=== PATIENT | male | born 1995 | race Caucasian/White ===

== ENCOUNTER 2020-04-21 18:18 | Emergency (ER) | payer OTHER ==
--- NOTE | 2020-04-21 19:12 | XR ---
EXAMINATION TYPE: XR chest 2V DATE OF EXAM: 04/21/2020 COMPARISON: NONE HISTORY: Cough and left sided chest pain. TECHNIQUE: Frontal and lateral views of the chest are obtained. FINDINGS: There is no focal air space opacity, pleural effusion, or pneumothorax seen. The cardiac silhouette size is within normal limits. The osseous structures are intact. IMPRESSION: No acute cardiopulmonary process.
[2020-04-21 19:22] VITALS: BP 115/76; PULSE 60; RESP 18; TEMP 98.2
--- NOTE | 2020-04-21 19:34 | ED ---
SOB HPI - General Chief Complaint: Shortness of Breath Stated Complaint: left lung inflamation Time Seen by Provider: 04/21/20 18:30 Source: patient Mode of arrival: ambulatory Limitations: no limitations - History of Present Illness Initial Comments: Patient is a 24-year-old male presenting to emergency Department with complaints of "left lung pain for the last month." He states he went to his PCPs office one month ago complaints of shortness of breath. He was given antibiotics, steroids and breathing treatments. Patient states he did feel like it helped a little bit but he still does not feel back to his normal self. He states he is an every day smoker, he also uses a Vape pen which he believes is causing increase in his symptoms. He states he feels worse after he smokes. He denies any chest pains, no fever or chills. He was tested for Covid one month ago and it was negative. He denies any abdominal pain, no nausea or vomiting. He denies history of blood clots, no heart disease. He has no further complaints at this time. Upon arrival to the ER, his vital signs are stable. - Related Data Home Medications Medication Instructions Recorded Confirmed Albuterol Sulfate [Proair Hfa] 2 puff INHALATION RT-QID PRN 04/21/20 04/21/20 Buprenorphine HCl/Naloxone HCl 1 tab SL BID 04/21/20 04/21/20 [Zubsolv 8.6-2.1 mg Tablet Sl] Escitalopram Oxalate [Lexapro] 10 mg PO DAILY 04/21/20 04/21/20 Famotidine 40 mg PO BID 04/21/20 04/21/20 Allergies Allergy/AdvReac Type Severity Reaction Status Date / Time codeine Allergy Unknown Verified 04/21/20 18:24 Childhood Review of Systems ROS Statement: Those systems with pertinent positive or pertinent negative responses have been documented in the HPI. ROS Other: All systems not noted in ROS Statement are negative. Past Medical History Past Medical History: No Reported History History of Any Multi-Drug Resistant Organisms: None Reported Past Surgical History: Orthopedic Surgery Additional Past Surgical History / Comment(s): femur fx repair Past Psychological History: Anxiety, Depression Smoking Status: Current every day smoker, Vaper Past Alcohol Use History: None Reported Past Drug Use History: Marijuana General Exam - General Exam Comments Initial Comments: GENERAL: Patient is well-developed and well-nourished. Patient is nontoxic and in no acute distress. HEAD: Atraumatic, normocephalic. EYES: Pupils equal round and reactive to light, extraocular movements intact, sclera anicteric, conjunctiva are normal. Eyelids were unremarkable. ENT: TMs normal, nares patent, oropharynx clear without exudates. Moist mucous membranes. NECK: Normal range of motion, supple without lymphadenopathy or JVD. LUNGS: Unlabored respirations. Breath sounds clear to auscultation bilaterally and equal. No wheezes rales or rhonchi. HEART: Regular rate and rhythm without murmurs, rubs or gallops. ABDOMEN: Soft, nontender, normoactive bowel sounds. No guarding, no rebound. No masses appreciated. : Deferred MUSCULOSKELETAL: Normal extremities with adequate strength and normal range of motion, no pitting or edema. No clubbing or cyanosis. NEUROLOGICAL: Patient is alert and oriented x 3. Motor and sensory are also intact. Cranial nerves II through XII grossly intact. Symmetrical smile. Normal speech, normal gait. PSYCH: Normal mood, normal affect. SKIN: Warm, Dry, normal turgor, no rashes or lesions noted. Limitations: no limitations Course Vital Signs 04/21/20 04/21/20 18:21 19:22 Temperature 98.0 F 98.2 F Pulse Rate 83 60 Respiratory 20 18 Rate Blood Pressure 121/71 115/76 O2 Sat by Pulse 98 99 Oximetry Medical Decision Making - Medical Decision Making Patient is a 24-year-old male here for some mild shortness of breath 1 month. He was treated by his PCP with antibiotics, steroids and breathing treatments one month ago, normal x-ray then. His vital signs today are unremarkable, exam is normal. Chest x-ray shows no acute findings. EKG is normal. We did discuss his every day smoking along with using his feet 10 which he believes is increasing symptoms. We discussed not smoking anymore. He also has an inhaler at home that he can use for shortness of breath. He will follow back up with his primary care physician. He is in agreement with this plan of care. He is stable for discharge. - EKG Data EKG Comments: Normal sinus rhythm, normal ECG. No signs of acute process. Ventricular rate 74, OK 152, QTC 400. Disposition Clinical Impression: Shortness of breath Disposition: HOME SELF-CARE Condition: Stable Instructions (If sedation given, give patient instructions): Normal Exam (ED) Additional Instructions: Please return to the Emergency Department if symptoms worsen or any other conc erns. May use a year inhaler for shortness of breath during the day. I recommend stop smoking and stop using the vape pen. Follow up with her regular doctor. Is patient prescribed a controlled substance at d/c from ED?: No Referrals: Nonstaff,Physician [Primary Care Provider] - 1-2 days
== END 2020-04-21 19:35 | disposition home or self-care (01) ==
LOC: EC 18:18
DX: R06.02 Shortness of breath (principal); F17.290 Nicotine dependence, other tobacco product, uncomplicated; F41.9 Anxiety disorder, unspecified; F32.9 Major depressive disorder, single episode, unspecified; Z79.899 Other long term (current) drug therapy; Z88.5 Allergy status to narcotic agent
CPT/HCPCS: 71046; 93005; 99285

== ENCOUNTER 2020-07-23 09:57 | Emergency (ER) | payer OTHER ==
[2020-07-23 10:06] VITALS: BP 143/98; PULSE 81; RESP 16; TEMP 97.8
[2020-07-23 10:45] LABS: Basophils % (A) 0 %; Eosinophils # (A) 0.1 k/uL (0-0.7); Eosinophils % (A) 1 %; HCT 43.5 % (39.0-53.0); Lymphocytes # (A) 1.6 k/uL (1.0-4.8); Lymphocytes % (A) 25 %; MCH 30.6 pg (25.0-35.0); MCHC 34.5 g/dL (31.0-37.0); MCV 88.7 fL (80.0-100.0); Mean Platelet Volume 6.8; Monocytes # (A) 0.3 k/uL (0-1.0); Monocytes % (A) 4 %; Neutrophils # (A) 4.5 k/uL (1.3-7.7); Neutrophils % (A) 69 %; Platelet Count 236 k/uL (150-450); RBC 4.91 m/uL (4.30-5.90); RDW 13.2 % (11.5-15.5); WBC 6.6 k/uL (3.8-10.6)
--- NOTE | 2020-07-23 10:46 | XR ---
EXAMINATION TYPE: XR chest 1V portable DATE OF EXAM: 07/23/2020 COMPARISON: Chest x-ray April 21, 2020 HISTORY: Right-sided chest and lung pain. TECHNIQUE: Single frontal view of the chest is obtained. FINDINGS: There is no suspicious new focal air space opacity, pleural effusion, or pneumothorax seen . The cardiac silhouette size remains within normal limits. The osseous structures remain intact. IMPRESSION: No acute process. No significant change from prior studies.
[2020-07-23 10:55] LABS: ALT 24 U/L (4-49); AST 26 U/L (17-59); African American GFR (CKD) >90 (>60 ml/min/1.73 sqM); Albumin 4.4 g/dL (3.5-5.0); Alkaline Phosphatase 83 U/L (38-126); Anion Gap 8 mmol/L; Blood Urea Nitrogen 13 mg/dL (9-20); Calcium 9.8 mg/dL (8.4-10.2); Carbon Dioxide 31 mmol/L (22-30); Chloride 102 mmol/L (98-107); Glucose 111 mg/dL (74-99); Non-African American GFR(CKD) >90 (>60 ml/min/1.73 sqM); Potassium 4.8 mmol/L (3.5-5.1); Sodium 141 mmol/L (137-145); Total Bilirubin 1.2 mg/dL (0.2-1.3); Total Protein 6.9 g/dL (6.3-8.2)
--- NOTE | 2020-07-23 11:35 | ED ---
General Adult HPI - General Chief complaint: Shortness of Breath Stated complaint: MINDY Time Seen by Provider: 07/23/20 10:17 Source: patient Mode of arrival: ambulatory Limitations: no limitations - History of Present Illness Initial comments: 24yo male with hx of HTN presenting to the ER today for chief complaint of right-sided chest pain. Patient states that on and off for months she's had right-sided chest pain he states is sharp in nature, comes and goes. Pt denies trauma/falls. Denies substernal pressure, jaw or arm pain. Denies diaphoresis. pt denies hemotpysis, leg swelling, hx of DVT/pE, recent surgeries/immobilization. Patient states at time he feels dyspnea. he states he thinks this is related to vaping. Patient states this particular episode has been present on and off x 1 day. 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 remaining ROS (-). - Related Data Home Medications Medication Instructions Recorded Confirmed Albuterol Sulfate [Proair Hfa] 2 puff INHALATION RT-QID PRN 04/21/20 04/21/20 Buprenorphine HCl/Naloxone HCl 1 tab SL BID 04/21/20 04/21/20 [Zubsolv 8.6-2.1 mg Tablet Sl] Escitalopram Oxalate [Lexapro] 10 mg PO DAILY 04/21/20 04/21/20 Famotidine 40 mg PO BID 04/21/20 04/21/20 Previous Rx's Medication Instructions Recorded predniSONE [Deltasone] 20 mg PO DAILY 4 Days #4 tab 07/23/20 Allergies Allergy/AdvReac Type Severity Reaction Status Date / Time codeine Allergy Unknown Verified 07/23/20 10:02 Childhood Review of Systems ROS Statement: Those systems with pertinent positive or pertinent negative responses have been documented in the HPI. ROS Other: All systems not noted in ROS Statement are negative. Past Medical History Past Medical History: No Reported History History of Any Multi-Drug Resistant Organisms: None Reported Past Surgical History: Orthopedic Surgery Additional Past Surgical History / Comment(s): femur fx repair Past Psychological History: Anxiety, Depression Smoking Status: Current every day smoker, Vaper Past Alcohol Use History: Occasional Past Drug Use History: Marijuana General Exam - General Exam Comments Initial Comments: General: The patient is awake and alert, in no distress, and does not appear acutely ill. Eye: +3 mm pupils are equal, round and reactive to light, extra-ocular movements are intact. No nystagmus. There is normal conjunctiva bilaterally. No signs of icterus. Neck: The neck is supple, there is no tenderness or JVD. Cardiovascular: There is a regular rate and rhythm. No murmur, rub or gallop is appreciated. Respiratory: Lungs are clear to auscultation, respirations are non-labored, breath sounds are equal. No wheezes, stridor, rales, or rhonchi. Gastrointestinal: Soft, non-distended, non-tender abdomen without masses or organomegaly noted. There is no rebound or guarding present. Musculoskeletal: Normal ROM, no tenderness. Strength 5/5. Sensation intact. Radial and DP pulses equal bilaterally 2+. Neurological: A&O x 3. CN II-XII intact grossly, There are no obvious motor or sensory deficits. Coordination appears grossly intact. Speech is normal. Skin: Skin is warm and dry and no rashes or lesions are noted. No LE edema or calf pain. Psychiatric: Cooperative, appropriate mood & affect, normal judgment. Limitations: no limitations Course Vital Signs 07/23/20 10:03 Temperature 97.8 F Pulse Rate 81 Respiratory 16 Rate Blood Pressure 143/98 O2 Sat by Pulse 100 Oximetry Medical Decision Making - Medical Decision Making Dimer (-). Troponin (-)--obtained in case of elevated d-dimer. Pt ekg no acute findings. no findings consistent with pericarditis. pt pain increases wtih deep inspiration. pt VS stable. does not appear cardiac in nature. cxr and lungs clear. no acute findings. no extremity findings. at this time pt was advised to quit smoking, we discussed possibility of pleurisy-pt initiated on steroids. he is to f/u with pcp and reutrn for worsening symptoms. pt discharged appearing well. Dr Moulton agreeable to care plan. - Lab Data Result diagrams: 07/23/20 10:36 07/23/20 10:36 Lab Results 07/23/20 07/23/20 07/23/20 Range/Units 10:27 10:36 10:36 WBC 6.6 (3.8-10.6) k/uL RBC 4.91 (4.30-5.90) m/uL Hgb 15.0 (13.0-17.5) gm/dL Hct 43.5 (39.0-53.0) % MCV 88.7 (80.0-100.0) fL MCH 30.6 (25.0-35.0) pg MCHC 34.5 (31.0-37.0) g/dL RDW 13.2 (11.5-15.5) % Plt Count 236 (150-450) k/uL MPV 6.8 Neutrophils % 69 % Lymphocytes % 25 % Monocytes % 4 % Eosinophils % 1 % Basophils % 0 % Neutrophils # 4.5 (1.3-7.7) k/uL Lymphocytes # 1.6 (1.0-4.8) k/uL Monocytes # 0.3 (0-1.0) k/uL Eosinophils # 0.1 (0-0.7) k/uL Basophils # 0.0 (0-0.2) k/uL D-Dimer 0.32 (<0.60) mg/L FEU Sodium (137-145) mmol/L Potassium (3.5-5.1) mmol/L Chloride (98-107) mmol/L Carbon Dioxide (22-30) mmol/L Anion Gap mmol/L BUN (9-20) mg/dL Creatinine (0.66-1.25) mg/dL Est GFR (CKD-EPI)AfAm (>60 ml/min/1.73 sqM) Est GFR (CKD-EPI)NonAf (>60 ml/min/1.73 sqM) Glucose (74-99) mg/dL Calcium (8.4-10.2) mg/dL Total Bilirubin (0.2-1.3) mg/dL AST (17-59) U/L ALT (4-49) U/L Alkaline Phosphatase (38-126) U/L Troponin I (0.000-0.034) ng/mL Total Protein (6.3-8.2) g/dL Albumin (3.5-5.0) g/dL Coronavirus (PCR) Not Detected (Not Detectd) 07/23/20 07/23/20 Range/Units 10:36 10:36 WBC (3.8-10.6) k/uL RBC (4.30-5.90) m/uL Hgb (13.0-17.5) gm/dL Hct (39.0-53.0) % MCV (80.0-100.0) fL MCH (25.0-35.0) pg MCHC (31.0-37.0) g/dL RDW (11.5-15.5) % Plt Count (150-450) k/uL MPV Neutrophils % % Lymphocytes % % Monocytes % % Eosinophils % % Basophils % % Neutrophils # (1.3-7.7) k/uL Lymphocytes # (1.0-4.8) k/uL Monocytes # (0-1.0) k/uL Eosinophils # (0-0.7) k/uL Basophils # (0-0.2) k/uL D-Dimer (<0.60) mg/L FEU Sodium 141 (137-145) mmol/L Potassium 4.8 (3.5-5.1) mmol/L Chloride 102 (98-107) mmol/L Carbon Dioxide 31 H (22-30) mmol/L Anion Gap 8 mmol/L BUN 13 (9-20) mg/dL Creatinine 0.82 (0.66-1.25) mg/dL Est GFR (CKD-EPI)AfAm >90 (>60 ml/min/1.73 sqM) Est GFR (CKD-EPI)NonAf >90 (>60 ml/min/1.73 sqM) Glucose 111 H (74-99) mg/dL Calcium 9.8 (8.4-10.2) mg/dL Total Bilirubin 1.2 (0.2-1.3) mg/dL AST 26 (17-59) U/L ALT 24 (4-49) U/L Alkaline Phosphatase 83 (38-126) U/L Troponin I <0.012 (0.000-0.034) ng/mL Total Protein 6.9 (6.3-8.2) g/dL Albumin 4.4 (3.5-5.0) g/dL Coronavirus (PCR) (Not Detectd) Disposition Clinical Impression: Chest pain Disposition: HOME SELF-CARE Condition: Good Instructions (If sedation given, give patient instructions): Pleurisy (ED) Additional Instructions: Please use medication as discussed. Please follow-up with family doctor in the next 2 days. Please stop smoking/vaping. Please return to emergency room if the symptoms increase or worsen or for any other concerns. Prescriptions: predniSONE [Deltasone] 20 mg PO DAILY 4 Days #4 tab Is patient prescribed a controlled substance at d/c from ED?: No Referrals: Nonstaff,Physician [Primary Care Provider] - 1-2 days [facility] [NON[facility]FF] - 1-2 days Time of Disposition: 11:37
== END 2020-07-23 11:50 | disposition home or self-care (01) ==
LOC: EC 09:57
DX: R07.89 Other chest pain (principal); F17.290 Nicotine dependence, other tobacco product, uncomplicated; F41.9 Anxiety disorder, unspecified; F32.9 Major depressive disorder, single episode, unspecified; Z20.822 Contact with and (suspected) exposure to COVID-19
CPT/HCPCS: 36415; 71045; 80053; 84484; 85025; 85379; 87635; 93005; 99285

== ENCOUNTER 2020-10-06 18:17 | Emergency (ER) | payer OTHER ==
--- NOTE | 2020-10-06 19:27 | ED ---
Recheck HPI - General Chief Complaint: Recheck/Abnormal Lab/Rx Stated Complaint: Abd pain Time Seen by Provider: 10/06/20 18:40 Source: patient Mode of arrival: ambulatory Limitations: no limitations - History of Present Illness Initial Comments: 24-year-old male presents to the emergency department with a chief complaint of Covid testing. Patient reports he needs a work note clearance because he has been experiencing some nausea vomiting diarrhea over the last 2 days but nothing today. States he does not want any laboratory workup but he would only like a work note. He will also like to be tested negative and a copy of the results. Has no other complaints. Patient reports he smokes several cigarettes and drink a monster prior to ED arrival he denies any chest pain or shortness of breath. - Related Data Home Medications Medication Instructions Recorded Confirmed Albuterol Sulfate [Proair Hfa] 2 puff INHALATION RT-QID PRN 04/21/20 04/21/20 Buprenorphine HCl/Naloxone HCl 1 tab SL BID 04/21/20 04/21/20 [Zubsolv 8.6-2.1 mg Tablet Sl] Escitalopram Oxalate [Lexapro] 10 mg PO DAILY 04/21/20 04/21/20 Famotidine 40 mg PO BID 04/21/20 04/21/20 Previous Rx's Medication Instructions Recorded predniSONE [Deltasone] 20 mg PO DAILY 4 Days #4 tab 07/23/20 Allergies Allergy/AdvReac Type Severity Reaction Status Date / Time codeine Allergy Unknown Verified 10/06/20 18:22 Childhood Review of Systems ROS Statement: Those systems with pertinent positive or pertinent negative responses have been documented in the HPI. ROS Other: All systems not noted in ROS Statement are negative. Past Medical History Past Medical History: No Reported History History of Any Multi-Drug Resistant Organisms: None Reported Past Surgical History: Orthopedic Surgery Additional Past Surgical History / Comment(s): femur fx repair Past Psychological History: Anxiety, Depression Smoking Status: Current every day smoker, Vaper Past Alcohol Use History: Daily Past Drug Use History: Marijuana General Exam Limitations: no limitations General appearance: alert, in no apparent distress Head exam: Present: atraumatic, normocephalic, normal inspection Eye exam: Present: normal appearance, PERRL, EOMI Pupils: Present: normal accommodation ENT exam: Present: normal exam, normal oropharynx, mucous membranes moist Neck exam: Present: normal inspection, full ROM. Absent: tenderness Respiratory exam: Present: normal lung sounds bilaterally. Absent: respiratory distress Cardiovascular Exam: Present: regular rate, normal rhythm, normal heart sounds. Absent: systolic murmur Extremities exam: Present: normal inspection, full ROM, normal capillary refill Back exam: Present: normal inspection, full ROM Neurological exam: Present: alert, oriented X3 Psychiatric exam: Present: normal affect, normal mood Skin exam: Present: warm, dry, intact, normal color Course Vital Signs 10/06/20 10/06/20 18:19 19:42 Temperature 98.0 F 98.3 F Pulse Rate 127 H 122 H Respiratory 16 18 Rate Blood Pressure 128/85 148/92 O2 Sat by Pulse 100 99 Oximetry Medical Decision Making - Medical Decision Making 24-year-old male presents to emergency department with a chief complaint of ov covid-19e testing. Patient does not want any laboratory workup aside from a Covid test. Swab is pending. Patient would like to review his results online and would like to be discharged. Patient continues to be tachycardic likely from drinking monster prior to arrival and while he was here. He also smoked several cigarettes prior to ED arrival. Case discussed with physician. Disposition Clinical Impression: Lab test negative for COVID-19 virus Disposition: HOME SELF-CARE Condition: Stable Instructions (If sedation given, give patient instructions): Coronavirus Disease 2019 (COVID-19) Additional Instructions: Please return to the Emergency Department if symptoms worsen or any other concerns. Is patient prescribed a controlled substance at d/c from ED?: No Referrals: Nonstaff,Physician [Primary Care Provider] - 1-2 days Time of Disposition: 19:27
[2020-10-06] MEDS ORDERED: LIDOCAINE 1%-EPI 1:100,000 20 ML VIAL SQ STA (19:30)
[2020-10-06 19:44] VITALS: BP 148/92; PULSE 122; RESP 18; TEMP 98.3
== END 2020-10-06 20:01 | disposition home or self-care (01) ==
LOC: EC 18:17
DX: Z20.822 Contact with and (suspected) exposure to COVID-19 (principal); R10.9 Unspecified abdominal pain; F41.9 Anxiety disorder, unspecified; F32.9 Major depressive disorder, single episode, unspecified; F17.290 Nicotine dependence, other tobacco product, uncomplicated; F17.210 Nicotine dependence, cigarettes, uncomplicated; F12.90 Cannabis use, unspecified, uncomplicated; Z79.52 Long term (current) use of systemic steroids
CPT/HCPCS: 87635; 99284

== ENCOUNTER 2020-11-05 16:05 | Emergency (ER) | payer OTHER ==
[2020-11-05 16:14] VITALS: BP 106/64; PULSE 104; RESP 16; TEMP 97.7
[2020-11-05] MEDS ORDERED: PROPARACAINE 0.5% OPHTH DROPS 15 ML BTL RIGHT EYE STA (16:16)
[2020-11-05] MEDS ORDERED: FLUORESCEIN STRIPS 1 MG STRIP RIGHT EYE ONE (16:16)
[2020-11-05] MEDS ORDERED: TOBRAMYCIN 0.3% OPHTH OINT 3.5 GM TUBE RIGHT EYE STA (16:48)
--- NOTE | 2020-11-05 17:11 | ED ---
Eye Problem HPI - General Chief complaint: Eye Problems Stated complaint: Glass in Rt Eye Time Seen by Provider: 11/05/20 16:16 Source: patient Mode of arrival: ambulatory Limitations: no limitations - History of Present Illness Initial comments: 24 year-old male patient presents to the emergency department for evaluation of possible foreign body to the right eye. Patient states that two days ago he was heating a glass object that shattered. States he felt something go into his right eye. States he had onset of pain and discomfort. States they flushed with three bottles of "saline". States the eye did feel better afterward but was still having some discomfort. Patient states redness and discomfort persisted so he presented here for further evaluation. He denies any visual disturbance. Denies drainage from the eye. States the discomfort feels like it is in the left upper quadrant of the eye. Denies any other injuries or concerns. States his te tanus vaccine is up to date. - Related Data Home Medications Medication Instructions Recorded Confirmed Albuterol Sulfate [Proair Hfa] 2 puff INHALATION RT-QID PRN 04/21/20 04/21/20 Buprenorphine HCl/Naloxone HCl 1 tab SL BID 04/21/20 04/21/20 [Zubsolv 8.6-2.1 mg Tablet Sl] Escitalopram Oxalate [Lexapro] 10 mg PO DAILY 04/21/20 04/21/20 Famotidine 40 mg PO BID 04/21/20 04/21/20 Previous Rx's Medication Instructions Recorded predniSONE [Deltasone] 20 mg PO DAILY 4 Days #4 tab 07/23/20 Allergies Allergy/AdvReac Type Severity Reaction Status Date / Time codeine Allergy Unknown Verified 11/05/20 16:14 Childhood Review of Systems ROS Statement: Those systems with pertinent positive or pertinent negative responses have been documented in the HPI. ROS Other: All systems not noted in ROS Statement are negative. Past Medical History Past Medical History: No Reported History History of Any Multi-Drug Resistant Organisms: None Reported Past Surgical History: Orthopedic Surgery Additional Past Surgical History / Comment(s): femur fx repair Past Psychological History: Anxiety, Depression Smoking Status: Current every day smoker, Vaper Past Alcohol Use History: Daily Past Drug Use History: Marijuana General Exam Limitations: no limitations General appearance: alert, in no apparent distress, other (Physical well-develo ped, well-nourished adult male patient in no acute distress. Vital signs upon presentation temperature 97.7F, pulse 104, respirations 16, blood pressure 106/64, pulse ox 98% on room air.) Eye exam: Present: PERRL, EOMI, conjunctival injection (Right-sided), other (Fluorescein stain with Wood's lamp examination was performed to the right eye. Lid eversion was performed. Area of increased redness to the LUQ of the eye and the area of discomfort. No evidence for foreign body. No uptake with the fluorescein. Negative Laura sign. Limbus is clear.). Absent: scleral icterus, periorbital swelling ENT exam: Present: normal exam, normal oropharynx, mucous membranes moist Cardiovascular Exam: Present: regular rate, normal rhythm, normal heart sounds. Absent: systolic murmur, diastolic murmur, rubs, gallop, clicks GI/Abdominal exam: Present: soft, normal bowel sounds. Absent: distended, tenderness, guarding, rebound, rigid Neurological exam: Present: alert, oriented X3, CN II-XII intact Psychiatric exam: Present: normal affect, normal mood Skin exam: Present: warm, dry, intact, normal color. Absent: rash Course Vital Signs 11/05/20 16:11 Temperature 97.7 F Pulse Rate 104 H Respiratory 16 Rate Blood Pressure 106/64 O2 Sat by Pulse 98 Oximetry Medical Decision Making - Medical Decision Making 24 year-old male patient presents for evaluation of irritation and redness to the right eye. Physical examination did reveal increased redness and irritation in the left upper quadrant of the eye area of discomfort. No evidence for foreign body. Negative Laura sign, no evidence for abrasion. No uptake of fluorescein. Patient did have improvement of symptoms with proparacaine. I did give tobramycin ointment to apply 4 times daily. He is instructed to follow-up with groundwater consultant for further evaluation as soon as possible. He requested testing for COVID states it would be required by his employer due to the red eye. Return parameters were discussed in detail. He verbalizes understanding and agrees this plan. Case discussed with my attending Dr. Cho. - Lab Data Lab Results 11/05/20 Range/Units 17:03 Coronavirus (PCR) Not Detected (Not Detectd) Disposition Clinical Impression: Right eye injury Disposition: HOME SELF-CARE Condition: Good Instructions (If sedation given, give patient instructions): Corneal Abrasion (ED), Conjunctivitis (ED) Additional Instructions: Use ointment to the right eye, 1cm ribbon to the lower lid 4 times daily while awake. Return for any new, worsening, or concerning symptoms. Is patient prescribed a controlled substance at d/c from ED?: No Referrals: Carlee Osborne MD [STAFF PHYSICIAN] - 1-2 days Time of Disposition: 17:09
== END 2020-11-05 17:15 | disposition home or self-care (01) ==
LOC: EC 16:05
DX: S05.91XA Unspecified injury of right eye and orbit, initial encounter (principal); F32.9 Major depressive disorder, single episode, unspecified; F41.9 Anxiety disorder, unspecified; F17.200 Nicotine dependence, unspecified, uncomplicated; F12.90 Cannabis use, unspecified, uncomplicated; Z79.52 Long term (current) use of systemic steroids; Z79.899 Other long term (current) drug therapy; W22.8XXA Striking against or struck by other objects, initial encounter
CPT/HCPCS: 87635; 99283

== ENCOUNTER 2020-12-27 18:58 | Emergency (ER) | payer OTHER ==
[2020-12-27 19:02] VITALS: BP 111/64; PULSE 108; RESP 16; TEMP 98.4
[2020-12-27] MEDS ORDERED: LIDOCAINE 1%-EPI 1:100,000 20 ML VIAL SQ STA (19:13)
--- NOTE | 2020-12-27 19:32 | ED ---
Skin/Abscess/FB HPI - General Chief complaint: Skin/Abscess/Foreign Body Stated complaint: infection Time Seen by Provider: 12/27/20 19:11 Source: patient Mode of arrival: ambulatory Limitations: no limitations - History of Present Illness Initial comments: 25-year-old male presenting to the emergency department with a chief complaint of an abscess in the right buttock 2 weeks. Patient reports this was a gradual onset and feels like his previous abscess. States last time this occurred he was in nursing home and he was on 2 antibiotics. Denies any history of MRSA. Denies any fevers or chills at home. Reports the region is tender with surrounding erythematous changes. Did report some discharge that he noticed 2 days ago but now it is mostly just tender to touch. - Related Data Home Medications Medication Instructions Recorded Confirmed Albuterol Sulfate [Proair Hfa] 2 puff INHALATION RT-QID PRN 04/21/20 04/21/20 Buprenorphine HCl/Naloxone HCl 1 tab SL BID 04/21/20 04/21/20 [Zubsolv 8.6-2.1 mg Tablet Sl] Escitalopram Oxalate [Lexapro] 10 mg PO DAILY 04/21/20 04/21/20 Famotidine 40 mg PO BID 04/21/20 04/21/20 Previous Rx's Medication Instructions Recorded predniSONE [Deltasone] 20 mg PO DAILY 4 Days #4 tab 07/23/20 Cephalexin [Keflex] 500 mg PO Q6HR #40 cap 12/27/20 Sulfamethox-Tmp 800-160Mg [Bactrim 1 each PO Q12HR #20 tab 12/27/20 Ds] Allergies Allergy/AdvReac Type Severity Reaction Status Date / Time codeine Allergy Unknown Verified 12/27/20 19:02 Childhood Review of Systems ROS Statement: Those systems with pertinent positive or pertinent negative responses have been documented in the HPI. ROS Other: All systems not noted in ROS Statement are negative. Past Medical History Past Medical History: No Reported History History of Any Multi-Drug Resistant Organisms: None Reported Past Surgical History: Orthopedic Surgery Additional Past Surgical History / Comment(s): femur fx repair Past Psychological History: Anxiety, Depression Smoking Status: Current every day smoker, Vaper Past Alcohol Use History: Daily Past Drug Use History: Marijuana General Exam Limitations: no limitations General appearance: alert, in no apparent distress Head exam: Present: atraumatic, normocephalic, normal inspection Eye exam: Present: normal appearance, PERRL, EOMI Pupils: Present: normal accommodation ENT exam: Present: normal exam, normal oropharynx, mucous membranes moist Neck exam: Present: normal inspection, full ROM. Absent: tenderness Respiratory exam: Present: normal lung sounds bilaterally. Absent: respiratory distress Cardiovascular Exam: Present: regular rate, normal rhythm, normal heart sounds. Absent: systolic murmur GI/Abdominal exam: Present: soft. Absent: distended, tenderness Extremities exam: Present: normal inspection, full ROM Back exam: Present: full ROM, tenderness (Tenderness at the abscess site on the right buttock). Absent: normal inspection (Abscess on the right buttock with mild surrounding cellulitis.) Neurological exam: Present: alert, oriented X3 Psychiatric exam: Present: normal affect, normal mood Skin exam: Present: warm, dry, intact, normal color Course Vital Signs 12/27/20 19:00 Temperature 98.4 F Pulse Rate 108 H Respiratory 16 Rate Blood Pressure 111/64 O2 Sat by Pulse 97 Oximetry Procedures - Incision & Drainage Consent Obtained: verbal consent, written consent Indication: Abscess Site: buttock Size (cm): 2 Anesthetic Used: lidocaine 1%, with epi Amount (mLs): 2 I&D Cleaning Method: Alcohol Wipe Sterile Field Used?: No Scalpel Used: #11 Needle Aspiration Performed?: No Irrigation Performed?: No I&D Drainage Obtained: Pus, Blood Complications: pain, bleeding Patient Tolerated Procedure: well, no complications Medical Decision Making - Medical Decision Making 25-year-old male presents emergency Department with a chief complaint of an abscess. A physical examination, there is an abscess with surrounding cellulitis, mild. Incision and drainage performed with minimal pustular drainage. Patient will be started on Keflex and Bactrim. I advised them on room control for the abscess. Return parameters were thoroughly discussed the patient is understanding and agreeable. Case discussed with Dr. Khoury. Disposition Clinical Impression: Abscess of buttock Disposition: HOME SELF-CARE Condition: Stable Instructions (If sedation given, give patient instructions): Abscess (ED), Abscess Incision and Drainage (DC) Additional Instructions: Please return to the Emergency Department if symptoms worsen or any other concerns. Prescriptions: Sulfamethox-Tmp 800-160Mg [Bactrim Ds] 1 each PO Q12HR #20 tab Cephalexin [Keflex] 500 mg PO Q6HR #40 cap Is patient prescribed a controlled substance at d/c from ED?: No Referrals: None,Stated [Primary Care Provider] - 1-2 days Time of Disposition: 19:32
== END 2020-12-27 20:18 | disposition home or self-care (01) ==
LOC: EC 18:58
DX: L02.31 Cutaneous abscess of buttock (principal); F41.9 Anxiety disorder, unspecified; F32.9 Major depressive disorder, single episode, unspecified; F17.200 Nicotine dependence, unspecified, uncomplicated; F12.90 Cannabis use, unspecified, uncomplicated; Z88.5 Allergy status to narcotic agent
CPT/HCPCS: 10060; 99282

== ENCOUNTER 2021-02-20 04:36 | Emergency (ER) | payer OTHER ==
[2021-02-20 04:45] VITALS: BP 141/95; PULSE 109; RESP 18; TEMP 97.8
[2021-02-20] MEDS ORDERED: predniSONE 20 MG TAB PO STA (05:47)
--- NOTE | 2021-02-20 05:49 | ED ---
Skin/Abscess/FB HPI - General Chief complaint: Skin/Abscess/Foreign Body Stated complaint: Revisit-Rash Time Seen by Provider: 02/20/21 05:37 Source: patient Mode of arrival: ambulatory Limitations: no limitations - History of Present Illness Initial comments: Patient is 25-year-old man who presents with complaint of pruritic rash mainly to her upper extremities but also located on the torso. The patient had been seen and has started using a steroid cream. he has not noted improvement in the 2 days since starting it. MD complaint: rash -: days(s) Location: generalized Severity: mild Quality: burning, other (Itching) Improves with: none Worsens with: none Associated symptoms: denies other symptoms Treatments Prior to Arrival: corticosteroid - Related Data Home Medications Medication Instructions Recorded Confirmed Albuterol Sulfate [Proair Hfa] 2 puff INHALATION RT-QID PRN 04/21/20 04/21/20 Buprenorphine HCl/Naloxone HCl 1 tab SL BID 04/21/20 04/21/20 [Zubsolv 8.6-2.1 mg Tablet Sl] Escitalopram Oxalate [Lexapro] 10 mg PO DAILY 04/21/20 04/21/20 Famotidine 40 mg PO BID 04/21/20 04/21/20 Previous Rx's Medication Instructions Recorded predniSONE [Deltasone] 20 mg PO DAILY 4 Days #4 tab 07/23/20 Cephalexin [Keflex] 500 mg PO Q6HR #40 cap 12/27/20 Sulfamethox-Tmp 800-160Mg [Bactrim 1 each PO Q12HR #20 tab 12/27/20 Ds] Triamcinolone 0.1% Cream [Kenalog 1 applicatio TOPICAL BID #30 gm 02/20/21 0.1% Cream] predniSONE [Deltasone] 20 mg PO BID #8 tab 02/20/21 Allergies Allergy/AdvReac Type Severity Reaction Status Date / Time codeine Allergy Unknown Verified 02/20/21 04:45 Childhood Review of Systems ROS Statement: Those systems with pertinent positive or pertinent negative responses have been documented in the HPI. ROS Other: All systems not noted in ROS Statement are negative. Constitutional: Denies: fever, chills Respiratory: Denies: cough, dyspnea Genitourinary: Denies: dysuria, hematuria Skin: Reports: as per HPI, rash Past Medical History Past Medical History: No Reported History History of Any Multi-Drug Resistant Organisms: None Reported Past Surgical History: Orthopedic Surgery Additional Past Surgical History / Comment(s): femur fx repair Past Psychological History: Anxiety, Depression Smoking Status: Current every day smoker, Vaper Past Alcohol Use History: Daily Past Drug Use History: Marijuana General Exam Limitations: no limitations General appearance: alert, in no apparent distress Head exam: Present: atraumatic, normocephalic Eye exam: Present: normal appearance. Absent: scleral icterus, conjunctival injection ENT exam: Present: normal oropharynx, mucous membranes moist Neck exam: Present: normal inspection Respiratory exam: Present: normal lung sounds bilaterally. Absent: respiratory distress, wheezes, rales, rhonchi, stridor Cardiovascular Exam: Present: regular rate, normal rhythm, normal heart sounds. Absent: systolic murmur, diastolic murmur, rubs, gallop Extremities exam: Present: normal inspection Skin exam: Present: warm, dry, intact, normal color, other (Patient has a papular rash mainly to the upper extremities bilaterally but also some that involves the torso. There is no involvement of the intertriginous areas or the axillae. No groin involvement. There is no involvement of the mucous membranes.) Course Vital Signs 02/20/21 04:42 Temperature 97.8 F Pulse Rate 109 H Respiratory 18 Rate Blood Pressure 141/95 O2 Sat by Pulse 100 Oximetry Medical Decision Making - Medical Decision Making Discussed possible etiologies with patient, at this point I contact dermatitis appears most likely and counseled patient that I suspect it will just take longer using the steroids. Did provide follow-up information for dermatology should the rash not be improving or should there be any worsening of it. Discussed return parameters. Disposition Clinical Impression: Contact dermatitis Disposition: HOME SELF-CARE Condition: Good Instructions (If sedation given, give patient instructions): Contact Dermatitis (DC) Prescriptions: predniSONE [Deltasone] 20 mg PO BID #8 tab Triamcinolone 0.1% Cream [Kenalog 0.1% Cream] 1 applicatio TOPICAL BID #30 gm Is patient prescribed a controlled substance at d/c from ED?: No Referrals: None,Stated [Primary Care Provider] - 1-2 days Mike Todd MD [STAFF PHYSICIAN] - 1-2 days
== END 2021-02-20 06:20 | disposition home or self-care (01) ==
LOC: EC 04:36
DX: L25.9 Unspecified contact dermatitis, unspecified cause (principal); F41.9 Anxiety disorder, unspecified; F32.A Depression, unspecified; F17.200 Nicotine dependence, unspecified, uncomplicated; F12.90 Cannabis use, unspecified, uncomplicated; Z88.5 Allergy status to narcotic agent
CPT/HCPCS: 99282; J7512

== ENCOUNTER 2021-03-02 22:41 | Emergency (ER) | payer OTHER ==
[2021-03-02 22:47] VITALS: BP 141/103; PULSE 120; RESP 18; TEMP 97.7
[2021-03-02] MEDS ORDERED: DEXAMETHASONE SOD PHOSPHATE 10 MG/ML 1 ML VIAL IM STA (23:01)
[2021-03-02] MEDS ORDERED: NYSTAT-TRIAMCIN 100,000-0.1 UNIT/GM-% CREAM 30 GM TUBE TOPICAL STA (23:02)
[2021-03-02] MEDS ORDERED: TRIAMCINOLONE 0.1% CREAM 80 GM TUBE TOPICAL SCH (23:15)
[2021-03-02] MEDS ORDERED: PERMETHRIN 5% CREAM 60 GM TUBE TOPICAL ONE (23:15)
[2021-03-02] MEDS ORDERED: NYSTATIN 100,000UNIT/GM CREAM 30 GM TUBE TOPICAL SCH (23:15)
[2021-03-02] MEDS ORDERED: hydrOXYzine HCL 25 MG TAB PO ONE (23:15)
--- NOTE | 2021-03-02 23:17 | ED ---
Skin/Abscess/FB HPI - General Chief complaint: Skin/Abscess/Foreign Body Stated complaint: Rash Time Seen by Provider: 03/02/21 22:57 Source: patient, RN notes reviewed, old records reviewed Mode of arrival: ambulatory Limitations: no limitations - History of Present Illness Initial comments: This is a 25-year-old male DF for evaluation of a two-week rash. Patient's where she has been significant for the last 2 weeks. History of multiple different creams medications without help. His rashes very itchy. His biggest complaint. Has not had any better despite treatment at times itching does go away. Otherwise no known sick contacts no family members with similar complaint. Patient unsure of exposure. MD complaint: rash -: week(s) (2) Location: generalized Severity: severe Severity scale (1-10): 9 Quality: aching, other (Itchy) Consistency: constant Improves with: none Worsens with: none Context: new medication Associated symptoms: denies other symptoms Treatments Prior to Arrival: Benadryl, corticosteroid - Related Data Home Medications Medication Instructions Recorded Confirmed Albuterol Sulfate [Proair Hfa] 2 puff INHALATION RT-QID PRN 04/21/20 04/21/20 Buprenorphine HCl/Naloxone HCl 1 tab SL BID 04/21/20 04/21/20 [Zubsolv 8.6-2.1 mg Tablet Sl] Escitalopram Oxalate [Lexapro] 10 mg PO DAILY 04/21/20 04/21/20 Famotidine 40 mg PO BID 04/21/20 04/21/20 Previous Rx's Medication Instructions Recorded predniSONE [Deltasone] 20 mg PO DAILY 4 Days #4 tab 07/23/20 Cephalexin [Keflex] 500 mg PO Q6HR #40 cap 12/27/20 Sulfamethox-Tmp 800-160Mg [Bactrim 1 each PO Q12HR #20 tab 12/27/20 Ds] Triamcinolone 0.1% Cream [Kenalog 1 applicatio TOPICAL BID #30 gm 02/20/21 0.1% Cream] predniSONE [Deltasone] 20 mg PO BID #8 tab 02/20/21 Famotidine [Pepcid] 40 mg PO BID #60 tab 03/02/21 hydrOXYzine HCL [Atarax] 50 mg PO QID PRN #60 tab 03/02/21 Allergies Allergy/AdvReac Type Severity Reaction Status Date / Time codeine Allergy Unknown Verified 03/02/21 22:47 Childhood Review of Systems ROS Statement: Those systems with pertinent positive or pertinent negative responses have been documented in the HPI. ROS Other: All systems not noted in ROS Statement are negative. Past Medical History Past Medical History: No Reported History History of Any Multi-Drug Resistant Organisms: None Reported Past Surgical History: Orthopedic Surgery Additional Past Surgical History / Comment(s): femur fx repair Past Psychological History: Anxiety, Depression Smoking Status: Current every day smoker, Vaper Past Alcohol Use History: Daily Past Drug Use History: Marijuana General Exam Limitations: no limitations General appearance: alert, in no apparent distress, anxious Head exam: Present: atraumatic, normocephalic, normal inspection Eye exam: Present: normal appearance, PERRL, EOMI. Absent: scleral icterus, conjunctival injection, periorbital swelling ENT exam: Present: normal exam, mucous membranes moist Neck exam: Present: normal inspection. Absent: tenderness, meningismus, lymphadenopathy Respiratory exam: Present: normal lung sounds bilaterally. Absent: respiratory distress, wheezes, rales, rhonchi, stridor Cardiovascular Exam: Present: normal rhythm, tachycardia, normal heart sounds. Absent: systolic murmur, diastolic murmur, rubs, gallop, clicks GI/Abdominal exam: Present: soft, normal bowel sounds. Absent: distended, tenderness, guarding, rebound, rigid Extremities exam: Present: normal inspection, full ROM, normal capillary refill. Absent: tenderness, pedal edema, joint swelling, calf tenderness Back exam: Present: normal inspection Neurological exam: Present: alert, oriented X3, CN II-XII intact Psychiatric exam: Present: normal affect, normal mood Skin exam: Present: warm, dry, intact, normal color. Absent: rash Course Vital Signs 03/02/21 22:44 Temperature 97.7 F Pulse Rate 120 H Respiratory 18 Rate Blood Pressure 141/103 O2 Sat by Pulse 96 Oximetry - Reevaluation(s) Reevaluation #1: 03/02/21 23:34 Medical record is reviewed Reevaluation #2: 03/02/21 23:34 Patient informed results and treatment plan here in the ER, questions answered Reevaluation #3: 03/02/21 23:35 Symptoms are improved here in the ER Medical Decision Making - Medical Decision Making 25 male DF for evaluation of significant itching urticarial rash for 2 weeks. Likely scabies, patient given treatment here in the ER as well as supportive care and itching care. Disposition Clinical Impression: Contact dermatitis, Urticaria Disposition: HOME SELF-CARE Condition: Fair Instructions (If sedation given, give patient instructions): Urticaria (ED) Prescriptions: hydrOXYzine HCL [Atarax] 50 mg PO QID PRN #60 tab PRN Reason: Itching Famotidine [Pepcid] 40 mg PO BID #60 tab Is patient prescribed a controlled substance at d/c from ED?: No Referrals: None,Stated [Primary Care Provider] - 1-2 days
[2021-03-02] MEDS ORDERED: FAMOTIDINE 20 MG TAB PO STA (23:18)
== END 2021-03-02 23:33 | disposition home or self-care (01) ==
LOC: EC 22:41
DX: L50.9 Urticaria, unspecified (principal); L25.9 Unspecified contact dermatitis, unspecified cause; F41.9 Anxiety disorder, unspecified; F32.A Depression, unspecified; F17.290 Nicotine dependence, other tobacco product, uncomplicated; F12.90 Cannabis use, unspecified, uncomplicated; Z72.89 Other problems related to lifestyle
CPT/HCPCS: 99282; 96372; J1100

== ENCOUNTER 2021-09-23 21:14 | Emergency (ER) | payer BC, OTHER ==
[2021-09-23] MEDS ORDERED: SODIUM CHLORIDE 0.9% 1,000 ML IV STA (21:58)
[2021-09-23] MEDS ORDERED: diphenhydrAMINE 50 MG/ML 1 ML VIAL IVP STA (21:58)
[2021-09-23] MEDS ORDERED: KETOROLAC 15 MG/ML 1 ML VIAL IVP STA (21:58)
[2021-09-23] MEDS ORDERED: METOCLOPRAMIDE 5 MG/ML 2 ML VIAL IVP STA (21:58)
[2021-09-23] MEDS ORDERED: DEXAMETHASONE SOD PHOSPHATE 10 MG/ML 1 ML VIAL IV STA (21:58)
--- NOTE | 2021-09-23 23:57 | ED ---
URI HPI - General Chief Complaint: Upper Respiratory Infection Stated Complaint: Covid+, Headache, Bodyache Time Seen by Provider: 09/23/21 21:40 Source: patient Mode of arrival: ambulatory Limitations: no limitations - History of Present Illness Initial Comments: 25-year-old male presents to the emergency department with symptoms of body aches, fevers and headache. Patient reports that he began having symptoms today and they became very severe. Admits to pressure behind both of his eyes. He is not taking any medications at home for her symptoms. Does report that his brother tested positive for Covid. He took a home Covid test that was positive. Presents for further treatment options. Patient is not vaccinated. Denies chest pain or shortness of breath. No cough. Denies nausea or vomiting. He has been able to take in good oral intake. No other alleviating, precipitating factors - Related Data Home Medications Medication Instructions Recorded Confirmed Albuterol Sulfate [Proair Hfa] 2 puff INHALATION RT-QID PRN 04/21/20 04/21/20 Buprenorphine HCl/Naloxone HCl 1 tab SL BID 04/21/20 04/21/20 [Zubsolv 8.6-2.1 mg Tablet Sl] Escitalopram Oxalate [Lexapro] 10 mg PO DAILY 04/21/20 04/21/20 Famotidine 40 mg PO BID 04/21/20 04/21/20 Previous Rx's Medication Instructions Recorded predniSONE [Deltasone] 20 mg PO DAILY 4 Days #4 tab 07/23/20 Cephalexin [Keflex] 500 mg PO Q6HR #40 cap 12/27/20 Sulfamethox-Tmp 800-160Mg [Bactrim 1 each PO Q12HR #20 tab 12/27/20 Ds] Triamcinolone 0.1% Cream [Kenalog 1 applicatio TOPICAL BID #30 gm 02/20/21 0.1% Cream] predniSONE [Deltasone] 20 mg PO BID #8 tab 02/20/21 Famotidine [Pepcid] 40 mg PO BID #60 tab 03/02/21 hydrOXYzine HCL [Atarax] 50 mg PO QID PRN #60 tab 03/02/21 Naproxen [Naprosyn] 500 mg PO BID #20 tablet 09/24/21 Allergies Allergy/AdvReac Type Severity Reaction Status Date / Time codeine Allergy Unknown Verified 09/23/21 21:22 Childhood Review of Systems ROS Statement: Those systems with pertinent positive or pertinent negative responses have been documented in the HPI. ROS Other: All systems not noted in ROS Statement are negative. Past Medical History Past Medical History: No Reported History History of Any Multi-Drug Resistant Organisms: None Reported Past Surgical History: Orthopedic Surgery Additional Past Surgical History / Comment(s): femur fx repair Past Psychological History: Anxiety, Depression Smoking Status: Current every day smoker, Vaper Past Alcohol Use History: Daily Past Drug Use History: Marijuana General Exam Limitations: no limitations General appearance: alert, in no apparent distress Head exam: Present: atraumatic, normocephalic, normal inspection Eye exam: Present: normal appearance, PERRL, EOMI. Absent: scleral icterus, conjunctival injection, periorbital swelling ENT exam: Present: normal exam, mucous membranes moist Neck exam: Present: normal inspection. Absent: tenderness, meningismus, lymphadenopathy Respiratory exam: Present: normal lung sounds bilaterally. Absent: respiratory distress, wheezes, rales, rhonchi, stridor Cardiovascular Exam: Present: regular rate, normal rhythm, normal heart sounds. Absent: systolic murmur, diastolic murmur, rubs, gallop, clicks GI/Abdominal exam: Present: soft, normal bowel sounds. Absent: distended, tenderness, guarding, rebound, rigid Extremities exam: Present: normal inspection, full ROM, normal capillary refill. Absent: tenderness, pedal edema, joint swelling, calf tenderness Back exam: Present: normal inspection Neurological exam: Present: alert, oriented X3, CN II-XII intact Psychiatric exam: Present: normal affect, normal mood Skin exam: Present: warm, dry, intact, normal color. Absent: rash Course Vital Signs 09/23/21 09/24/21 09/24/21 21:20 00:10 01:25 Temperature 99.5 F 99.4 F Pulse Rate 102 H 78 76 Respiratory 20 16 16 Rate Blood Pressure 125/85 138/95 132/84 O2 Sat by Pulse 97 98 98 Oximetry Medical Decision Making - Medical Decision Making Upon arrival patient was placed in room 7. Thorough history and physical exam was performed. IV is established. Patient is given a liter bolus of normal saline, 10 mg of Reglan, 50 mg of Toradol, 25 mg of Benadryl and 10 mg of Decadron. Patient is reevaluated and reports that he has marked improvement in his symptoms. As his PMI is greater than 25 a did offer antibody treatment for which the patient did agree to. This is administered. Patient will be discharged home and instructed to follow up with his primary care doctor in 2-4 days. Return to the emergency room for any new or worsening symptoms. Patient was discharged with stable condition Disposition Clinical Impression: COVID-19 Disposition: HOME SELF-CARE Condition: Stable Instructions (If sedation given, give patient instructions): COVID-19 (Coronavirus Disease 2019) (ED) Additional Instructions: Please alternate taking Motrin and Tylenol for pain control. Follow up with your care doctor in 2-4 days and return for any new or worsening symptoms Prescriptions: Naproxen [Naprosyn] 500 mg PO BID #20 tablet Is patient prescribed a controlled substance at d/c from ED?: No Referrals: None,Stated [Primary Care Provider] - 1-2 days Time of Disposition: 23:57
[2021-09-24 00:10] VITALS: RESP 16
[2021-09-24] MEDS ORDERED: BEBTELOVIMAB (EUA) 175 MG/2 ML VIAL IV ONE (00:30)
[2021-09-24 01:29] VITALS: BP 132/84; PULSE 76; TEMP 99.4
== END 2021-09-24 01:25 | disposition home or self-care (01) ==
LOC: EC 21:14
DX: U07.1 COVID-19 (principal); F17.209 Nicotine dependence, unspecified, with unspecified nicotine-induced disorders; Z88.5 Allergy status to narcotic agent
CPT/HCPCS: 99284; 96374; 96375; 96361; J1200; J1100; J2765; J1885; Q0222

== ENCOUNTER 2022-08-23 21:12 | Emergency (ER) | payer OTHER, BC ==
[2022-08-23 21:39] VITALS: BP 119/76; PULSE 71; RESP 20; TEMP 98.3
--- NOTE | 2022-08-23 22:39 | ED ---
General Adult HPI - General Chief complaint: Recheck/Abnormal Lab/Rx Stated complaint: [facility] Time Seen by Provider: 08/23/22 22:13 Source: patient, RN notes reviewed Mode of arrival: ambulatory Limitations: no limitations - History of Present Illness Initial comments: 26-year-old male with no significant past medical history presents to the emergency department with a chief complaint of urine drug screen. Patient reports that he works at "[employer]" and they are requesting that he get a drug test. He denies any injury at work. He denies any specific complaints at the time of evaluation. Denies dizziness, lightheaded, chest pain, shortness of breath, abdominal pain, recent falls. - Related Data Home Medications Medication Instructions Recorded Confirmed Albuterol Sulfate [Proair Hfa] 2 puff INHALATION RT-QID PRN 04/21/20 04/21/20 Buprenorphine HCl/Naloxone HCl 1 tab SL BID 04/21/20 04/21/20 [Zubsolv 8.6-2.1 mg Tablet Sl] Escitalopram Oxalate [Lexapro] 10 mg PO DAILY 04/21/20 04/21/20 Famotidine 40 mg PO BID 04/21/20 04/21/20 Previous Rx's Medication Instructions Recorded predniSONE [Deltasone] 20 mg PO DAILY 4 Days #4 tab 07/23/20 Cephalexin [Keflex] 500 mg PO Q6HR #40 cap 12/27/20 Sulfamethox-Tmp 800-160Mg [Bactrim 1 each PO Q12HR #20 tab 12/27/20 Ds] Triamcinolone 0.1% Cream [Kenalog 1 applicatio TOPICAL BID #30 gm 02/20/21 0.1% Cream] predniSONE [Deltasone] 20 mg PO BID #8 tab 02/20/21 Famotidine [Pepcid] 40 mg PO BID #60 tab 03/02/21 hydrOXYzine HCL [Atarax] 50 mg PO QID PRN #60 tab 03/02/21 Naproxen [Naprosyn] 500 mg PO BID #20 tablet 09/24/21 Allergies Allergy/AdvReac Type Severity Reaction Status Date / Time codeine Allergy Unknown Verified 08/23/22 21:38 Childhood Review of Systems ROS Statement: Those systems with pertinent positive or pertinent negative responses have been documented in the HPI. ROS Other: All systems not noted in ROS Statement are negative. Past Medical History Past Medical History: No Reported History History of Any Multi-Drug Resistant Organisms: None Reported Past Surgical History: Orthopedic Surgery Additional Past Surgical History / Comment(s): femur fx repair Past Psychological History: Anxiety, Depression Smoking Status: Current every day smoker, Vaper Past Alcohol Use History: Daily Past Drug Use History: Marijuana General Exam - General Exam Comments Initial Comments: General: Alert, in no acute distress Head: atraumatic normocephalic. Eyes PERRL, EOMI intact, mucous membranes moist Respiratory: Lungs clear to auscultation bilaterally Cardiovascular: Heart rate regular rate and rhythm Abdominal: Soft without guarding or rebound Extremities: Normal inspection with full range of motion and normal capillary refill Neuroogic: alert and oriented 3, CN II-XII intact, able to ambulate with steady gait Skin: warm dry and intact with normal color Limitations: no limitations Course Vital Signs 08/23/22 21:36 Temperature 98.3 F Pulse Rate 71 Respiratory 20 Rate Blood Pressure 119/76 O2 Sat by Pulse 98 Oximetry Medical Decision Making - Medical Decision Making Was pt. sent in by a medical professional or institution (, PA, BONDING EQUIPMENT OPERATOR, urgent care, hospital, or jail...) When possible be specific @ -[No] Did you speak to anyone other than the patient for history (EMS, parent, family, police, friend...)? What history was obtained from this source @ -[No] Did you review nursing and triage notes (agree or disagree)? Why? @ -[I reviewed and agree with nursing and triage notes] Were old charts reviewed (outside hosp., previous admission, EMS record, old EKG, old radiological studies, urgent care reports/EKG's, jail records)? Report findings @ -[No old charts were reviewed] Differential Diagnosis (chest pain, altered mental status, abdominal pain women, abdominal pain men, vaginal bleeding, weakness, fever, dyspnea, syncope, headache, dizziness, GI bleed, back pain, seizure, CVA, palpatations, mental health, musculoskeletal)? @ -[not applicable] EKG interpreted by me (3pts min.). @ -[As above] X-rays interpreted by me (1pt min.). @ -[None done] CT interpreted by me (1pt min.). @ -[None done] U/S interpreted by me (1pt. min.). @ -[None done] What testing was considered but not performed or refused? (CT, X-rays, U/S, labs)? Why? @ -[None] What meds were considered but not given or refused? Why? @ -[None] Did you discuss the management of the patient with other professionals (professionals i.e. Dr., PA, BONDING EQUIPMENT OPERATOR, lab, RT, psych nurse, social services assistant, firebreak cutter, teacher, dairy quality assurance officer, pillowcase sewer)? Give summary @ -[No] Was smoking cessation discussed for >3mins.? @ -[No] Was critical care preformed (if so, how long)? @ -[No] Were there social determinants of health that impacted care today? How? (Homelessness, low income, unemployed, alcoholism, drug addiction, transportation, low edu. Level, literacy, decrease access to med. care, detention, rehab)? @ -[No] Was there de-escalation of care discussed even if they declined (Discuss DNR or withdrawal of care, Hospice)? DNR status @ -[No] What co-morbidities impacted this encounter? (DM, HTN, Smoking, COPD, CAD, Cancer, CVA, ARF, Chemo, Hep., AIDS, mental health diagnosis, sleep apnea, morbid obesity)? @ -[None] Was patient admitted / discharged? Hospital course, mention meds given and route, prescriptions, significant lab abnormalities, going to OR and other pertinent info. @ -Discharged. This is a 26-year-old male who presents to the emergency department with urine drug screen. Patient had a thorough history and physical exam performed while in the ED. Physical likely unremarkable heart rate regular rate and rhythm lungs clear to auscultation bilaterally abdomen is soft and nontender. Urine Drug screen results pending. Return precautions were discussed at length. All questions questions and concerns were addressed. He was discharged in stable condition. Case discussed with JEWELS Tian who agrees with plan of care Undiagnosed new problem with uncertain prognosis? @ -[No] Drug Therapy requiring intensive monitoring for toxicity (Heparin, Nitro, Insulin, Cardizem)? @ -[No] Were any procedures done? @ -[No] Diagnosis/symptom? @ -Encounter for Urine Drug Screen Acute, or Chronic, or Acute on Chronic? @ -acute Uncomplicated (without systemic symptoms) or Complicated (systemic symptoms)? @ -uncomplicated Side effects of treatment? @ -[No] Exacerbation, Progression, or Severe Exacerbation? @ -[No] Poses a threat to life or bodily function? How? (Chest pain, [place], [place], pneumonia, PE, COPD, DKA, ARF, appy, cholecystitis, CVA, Diverticulitis, Homicidal, Suicidal, threat to staff... and all critical care pts) @ -low likelihood Disposition Clinical Impression: Encounter for drug screening Disposition: HOME SELF-CARE Condition: Stable Additional Instructions: These return to the nearest emergency department if symptoms worsen or persist Is patient prescribed a controlled substance at d/c from ED?: No Referrals: None,Stated [Primary Care Provider] - 1-2 days Time of Disposition: 22:39
== END 2022-08-23 22:40 | disposition home or self-care (01) ==
LOC: EC 21:12
DX: Z02.83 Encounter for blood-alcohol and blood-drug test (principal); F41.9 Anxiety disorder, unspecified; F32.A Depression, unspecified; F17.290 Nicotine dependence, other tobacco product, uncomplicated; F12.90 Cannabis use, unspecified, uncomplicated; Z79.899 Other long term (current) drug therapy; Z88.5 Allergy status to narcotic agent
CPT/HCPCS: 99281

== ENCOUNTER 2022-12-19 11:17 | Emergency (ER) | payer BC, OTHER ==
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
[2022-12-19 16:05] VITALS: BP 149/99; PULSE 99; RESP 18; TEMP 97.7
== END 2022-12-19 15:51 | disposition home or self-care (01) ==
LOC: EC 11:17
DX: S00.83XA Contusion of other part of head, initial encounter (principal); F32.A Depression, unspecified; F41.9 Anxiety disorder, unspecified; F12.90 Cannabis use, unspecified, uncomplicated; F17.290 Nicotine dependence, other tobacco product, uncomplicated; Z79.899 Other long term (current) drug therapy; Z88.5 Allergy status to narcotic agent; W22.8XXA Striking against or struck by other objects, initial encounter
CPT/HCPCS: 70450; 70486; 99283

== ENCOUNTER 2023-01-09 14:20 | Emergency (ER) | payer OTHER ==
[2023-01-09] MEDS ORDERED: SODIUM CHLORIDE 0.9% 500 ML 500 ML IV STA (15:15)
--- NOTE | 2023-01-09 15:17 | ED ---
Abdominal Pain HPI - General Chief Complaint: Abdominal Pain Stated Complaint: vomitting, sweats, Time Seen by Provider: 01/09/23 15:09 Source: patient Mode of arrival: ambulatory Limitations: no limitations - History of Present Illness Initial Comments: 's patient is 27-year-old man who presents to have evaluation for abdominal pain. He notes that it is getting progressively worse over the past 3 days or so. He is also now not tolerating any oral intake. He states that he is having multiple episodes of vomiting every day and now it is just "stomach acid." The patient has not noted fever or chills. No change in urination. He states that his last bowel movement was probably about 3 days ago and at that time seemed normal. MD Complaint: abdominal pain -: days(s) Location: periumbilical Radiation: none Migration to: other (Diffuse) Severity: severe Quality: aching Consistency: constant Improves With: nothing Worsens With: nothing Associated Symptoms: nausea, vomiting, constipation - Related Data Home Medications Medication Instructions Recorded Confirmed No Known Home Medications 01/09/23 01/09/23 Allergies Allergy/AdvReac Type Severity Reaction Status Date / Time codeine Allergy Unknown Verified 01/09/23 16:18 Childhood Review of Systems ROS Statement: Those systems with pertinent positive or pertinent negative responses have been documented in the HPI. ROS Other: All systems not noted in ROS Statement are negative. Constitutional: Denies: fever, chills Respiratory: Denies: cough, dyspnea Cardiovascular: Denies: chest pain, palpitations, edema Gastrointestinal: Reports: abdominal pain, nausea, vomiting, constipation. 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 Absent: scleral icterus, conjunctival injection Neck exam: Present: normal inspection Respiratory exam: Present: normal lung sounds bilaterally. Absent: respiratory distress, wheezes, rales, rhonchi, stridor Cardiovascular Exam: Present: regular rate, normal rhythm, normal heart sounds. Absent: systolic murmur, diastolic murmur, rubs, gallop GI/Abdominal exam: Present: soft. Absent: distended, tenderness, guarding, rebound, rigid, mass, pulsatile mass Extremities exam: Present: normal inspection, normal capillary refill. Absent: pedal edema, calf tenderness Back exam: Present: normal inspection. Absent: CVA tenderness (R), CVA tenderness (L) Neurological exam: Present: alert Skin exam: Present: warm, dry, intact, normal color. Absent: rash Course Vital Signs 01/09/23 01/09/23 01/09/23 14:34 16:20 18:20 Temperature 98.0 F Pulse Rate 72 69 56 L Respiratory 22 18 18 Rate Blood Pressure 130/103 152/102 149/100 O2 Sat by Pulse 100 100 98 Oximetry 01/09/23 01/09/23 18:52 21:30 Temperature 98.6 F Pulse Rate 67 68 Respiratory 18 18 Rate Blood Pressure 143/106 122/67 O2 Sat by Pulse 97 99 Oximetry Medical Decision Making - Medical Decision Making The patient had computed tomography scan of the abdomen and pelvis which I interpreted as negative for acute surgical condition, obstruction, free air. Was pt. sent in by a medical professional or institution (, PA, LIFE MANAGER, urgent care, hospital, or fdc...) When possible be specific @ -[No] Did you speak to anyone other than the patient for history (EMS, parent, family, police, friend...)? What history was obtained from this source @ -[No] Did you review nursing and triage notes (agree or disagree)? Why? @ -[I reviewed and agree with nursing and triage notes] Were old charts reviewed (outside hosp., previous admission, EMS record, old EKG, old radiological studies, urgent care reports/EKG's, fdc records)? Report findings @ -[No old charts were reviewed] Differential Diagnosis (chest pain, altered mental status, abdominal pain women, abdominal pain men, vaginal bleeding, weakness, fever, dyspnea, syncope, headache, dizziness, GI bleed, back pain, seizure, CVA, palpatations, mental health, musculoskeletal)? @ -[Differential Abdominal Pain Men: Appendicitis, cholecystitis, diverticulosis, ischemic bowel, pancreatitis, hepatitis, UTI, gastroenteritis, AAA, incarcerated hernia, bowel obstruction, constipation, inflammatory bowel, hepatitis, peptic ulcer disease, splenic infarction, perforated viscus, testicular torsion, this is not meant to be an all-inclusive list EKG interpreted by me (3pts min.). @ -[ X-rays interpreted by me (1pt min.). @ -[None done] CT interpreted by me (1pt min.). @ -[I interpreted as above U/S interpreted by me (1pt. min.). @ -[None done] What testing was considered but not performed or refused? (CT, X-rays, U/S, labs)? Why? @ -[None] What meds were considered but not given or refused? Why? @ -[None] Did you discuss the management of the patient with other professionals (professionals i.e. , PA, LIFE MANAGER, lab, RT, psych nurse, social sciences research scientist, director of flight operations, teacher, medical officer, caseworker)? Give summary @ -[No] Was smoking cessation discussed for >3mins.? @ -[No] Was critical care preformed (if so, how long)? @ -[No] Were there social determinants of health that impacted care today? How? (Homelessness, low income, unemployed, alcoholism, drug addiction, transportation, low edu. Level, literacy, decrease access to med. care, senior living, rehab)? @ -[No] Was there de-escalation of care discussed even if they declined (Discuss DNR or withdrawal of care, Hospice)? DNR status @ -[No] What co-morbidities impacted this encounter? (DM, HTN, Smoking, COPD, CAD, Cancer, CVA, ARF, Chemo, Hep., AIDS, mental health diagnosis, sleep apnea, morbid obesity)? @ -[None] Was patient admitted / discharged? Hospital course, mention meds given and route , prescriptions, significant lab abnormalities, going to OR and other pertinent info. @ -[This patient is a 27-year-old man here to have evaluation of abdominal pain. The patient did have some lower abdominal tenderness and therefore head CT scan of the abdomen which does not reveal acute surgical condition. He is feeling better following medication and IV fluids. We discussed appropriate further care and follow-up and patient given instructions to return in 6-12 hours if any worsening or if not having improvement. Given appendicitis warning Undiagnosed new problem with uncertain prognosis? @ -[No] Drug Therapy requiring intensive monitoring for toxicity (Heparin, Nitro, Insulin, Cardizem)? @ -[No] Were any procedures done? @ -[No] Diagnosis/symptom? @ -[Acute abdominal pain Acute, or Chronic, or Acute on Chronic? @ -[Acute Uncomplicated (without systemic symptoms) or Complicated (systemic symptoms)? @ -Uncomplicated Side effects of treatment? @ -[No] Exacerbation, Progression, or Severe Exacerbation? @ -[No] Poses a threat to life or bodily function? How? (Chest pain, [place], [place], pneumonia, PE, COPD, DKA, ARF, appy, cholecystitis, CVA, Diverticulitis, Homicidal, Suicidal, threat to staff... and all critical care pts) @ -[Low likelihood - Lab Data Result diagrams: 01/09/23 15:30 01/09/23 15:30 Lab Results 01/09/23 01/09/23 01/09/23 Range/Units 15:30 15:30 15:30 WBC 12.7 H (3.8-10.6) k/uL RBC 5.54 (4.30-5.90) m/uL Hgb 16.7 (13.0-17.5) gm/dL Hct 48.3 (39.0-53.0) % MCV 87.2 (80.0-100.0) fL MCH 30.2 (25.0-35.0) pg MCHC 34.7 (31.0-37.0) g/dL RDW 13.8 (11.5-15.5) % Plt Count 335 (150-450) k/uL MPV 7.3 Neutrophils % 82 % Lymphocytes % 13 % Monocytes % 4 % Eosinophils % 0 % Basophils % 0 % Neutrophils # 10.4 H (1.3-7.7) k/uL Lymphocytes # 1.6 (1.0-4.8) k/uL Monocytes # 0.5 (0-1.0) k/uL Eosinophils # 0.0 (0-0.7) k/uL Basophils # 0.0 (0-0.2) k/uL Sodium 138 (137-145) mmol/L Potassium 4.8 (3.5-5.1) mmol/L Chloride 97 L (98-107) mmol/L Carbon Dioxide 24 (22-30) mmol/L Anion Gap 17 mmol/L BUN 32 H (9-20) mg/dL Creatinine 0.87 (0.66-1.25) mg/dL Est GFR (CKD-EPI)AfAm >90 (>60 ml/min/1.73 sqM) Est GFR (CKD-EPI)NonAf >90 (>60 ml/min/1.73 sqM) Glucose 122 H (74-99) mg/dL Plasma Lactic Acid Ramesh 1.7 (0.7-2.0) mmol/L Calcium 10.2 (8.4-10.2) mg/dL Total Bilirubin 1.6 H (0.2-1.3) mg/dL AST 26 (17-59) U/L ALT 23 (4-49) U/L Alkaline Phosphatase 124 (38-126) U/L C-Reactive Protein 1.3 H (<1.0) mg/dL Total Protein 8.5 H (6.3-8.2) g/dL Albumin 5.2 H (3.5-5.0) g/dL Amylase 52 (30-110) U/L Lipase 75 (23-300) U/L Urine Color Urine Appearance (Clear) Urine pH (5.0-8.0) Ur Specific Glenn (1.001-1.035) Urine Protein (Negative) Urine Glucose (UA) (Negative) Urine Ketones (Negative) Urine Blood (Negative) Urine Nitrite (Negative) Urine Bilirubin (Negative) Urine Urobilinogen (<2.0) mg/dL Ur Leukocyte Esterase (Negative) Urine RBC (0-5) /hpf Urine Mucus (None) /hpf 01/09/23 Range/Units 18:06 WBC (3.8-10.6) k/uL RBC (4.30-5.90) m/uL Hgb (13.0-17.5) gm/dL Hct (39.0-53.0) % MCV (80.0-100.0) fL MCH (25.0-35.0) pg MCHC (31.0-37.0) g/dL RDW (11.5-15.5) % Plt Count (150-450) k/uL MPV Neutrophils % % Lymphocytes % % Monocytes % % Eosinophils % % Basophils % % Neutrophils # (1.3-7.7) k/uL Lymphocytes # (1.0-4.8) k/uL Monocytes # (0-1.0) k/uL Eosinophils # (0-0.7) k/uL Basophils # (0-0.2) k/uL Sodium (137-145) mmol/L Potassium (3.5-5.1) mmol/L Chloride (98-107) mmol/L Carbon Dioxide (22-30) mmol/L Anion Gap mmol/L BUN (9-20) mg/dL Creatinine (0.66-1.25) mg/dL Est GFR (CKD-EPI)AfAm (>60 ml/min/1.73 sqM) Est GFR (CKD-EPI)NonAf (>60 ml/min/1.73 sqM) Glucose (74-99) mg/dL Plasma Lactic Acid Ramesh (0.7-2.0) mmol/L Calcium (8.4-10.2) mg/dL Total Bilirubin (0.2-1.3) mg/dL AST (17-59) U/L ALT (4-49) U/L Alkaline Phosphatase (38-126) U/L C-Reactive Protein (<1.0) mg/dL Total Protein (6.3-8.2) g/dL Albumin (3.5-5.0) g/dL Amylase (30-110) U/L Lipase (23-300) U/L Urine Color Yellow Urine Appearance Clear (Clear) Urine pH 7.0 (5.0-8.0) Ur Specific Glenn >1.050 H (1.001-1.035) Urine Protein 1+ H (Negative) Urine Glucose (UA) Negative (Negative) Urine Ketones 3+ H (Negative) Urine Blood Negative (Negative) Urine Nitrite Negative (Negative) Urine Bilirubin 1+ H (Negative) Urine Urobilinogen 2.0 (<2.0) mg/dL Ur Leukocyte Esterase Negative (Negative) Urine RBC <1 (0-5) /hpf Urine Mucus Occasional H (None) /hpf Disposition Clinical Impression: Abdominal pain Disposition: HOME SELF-CARE Condition: Good Instructions (If sedation given, give patient instructions): Abdominal Pain (ED) Is patient prescribed a controlled substance at d/c from ED?: No Referrals: None,Stated [Primary Care Provider] - 1-2 days Estee Black MD [STAFF PHYSICIAN] - 1-2 days
[2023-01-09 15:49] LABS: Basophils % (A) 0 %; Eosinophils % (A) 0 %; HCT 48.3 % (39.0-53.0); HGB 16.7 gm/dL (13.0-17.5); Lymphocytes # (A) 1.6 k/uL (1.0-4.8); Lymphocytes % (A) 13 %; MCH 30.2 pg (25.0-35.0); MCHC 34.7 g/dL (31.0-37.0); MCV 87.2 fL (80.0-100.0); Mean Platelet Volume 7.3; Monocytes # (A) 0.5 k/uL (0-1.0); Monocytes % (A) 4 %; Neutrophils # (A) 10.4 k/uL (1.3-7.7); Neutrophils % (A) 82 %; Platelet Count 335 k/uL (150-450); RBC 5.54 m/uL (4.30-5.90); RDW 13.8 % (11.5-15.5); WBC 12.7 k/uL (3.8-10.6)
[2023-01-09] MEDS ORDERED: MORPHINE SULFATE 4 MG/ML SYRINGE IV STA (15:55)
[2023-01-09] MEDS ORDERED: ONDANSETRON 4 MG/2 ML VIAL IVP STA ×2 (15:55→19:46)
[2023-01-09 15:59] LABS: ALT 23 U/L (4-49); AST 26 U/L (17-59); African American GFR (CKD) >90 (>60 ml/min/1.73 sqM); Albumin 5.2 g/dL (3.5-5.0); Alkaline Phosphatase 124 U/L (38-126); Amylase 52 U/L (30-110); Anion Gap 17 mmol/L; Blood Urea Nitrogen 32 mg/dL (9-20); C Reactive Protein 1.3 mg/dL (<1.0); Calcium 10.2 mg/dL (8.4-10.2); Carbon Dioxide 24 mmol/L (22-30); Chloride 97 mmol/L (98-107); Glucose 122 mg/dL (74-99); Lipase 75 U/L (23-300); Non-African American GFR(CKD) >90 (>60 ml/min/1.73 sqM); Potassium 4.8 mmol/L (3.5-5.1); Sodium 138 mmol/L (137-145); Total Bilirubin 1.6 mg/dL (0.2-1.3); Total Protein 8.5 g/dL (6.3-8.2)
[2023-01-09 16:25] VITALS: RESP 18
--- NOTE | 2023-01-09 17:05 | CT ---
EXAMINATION TYPE: CT abdomen pelvis w con DATE OF EXAM: 01/09/2023 COMPARISON: None HISTORY: nausea, vomiting, low abd pain CT DLP: 656 mGycm, Automated Exposure Control for Dose Reduction was Utilized. CONTRAST: CT scan of the abdomen and pelvis is performed with oral and with IV Contrast, patient inje cted with 100 mL of Isovue 300. FINDINGS: LUNG BASES: No significant abnormality is appreciated. LIVER/GB: No significant abnormality is appreciated. PANCREAS: No significant abnormality is seen. SPLEEN: No significant abnormality is seen. ADRENALS: No significant abnormality is seen. KIDNEYS: No significant abnormality is seen. BOWEL: No bowel dilation. No focal inflammatory changes. Appendix has normal appearance. The pancolo ghassan stool volume is moderately prominent. PROSTATE/SEMINAL VESICLES: No gross abnormality seen. LYMPH NODES: No greater than 1cm abdominal or pelvic lymph nodes are appreciated. OSSEOUS STRUCTURES: No significant abnormality is seen. OTHER: No significant additional abnormality is seen. IMPRESSION: No significant acute finding is seen to account for patient's clinical symptoms.
[2023-01-09 18:21] LABS: Appearance,Urine Clear (Clear); Bilirubin,Urine 1+ (Negative); Blood,Urine Negative (Negative); Color,Urine Yellow; Glucose,Urine (UA) Negative (Negative); Ketones,Urine 3+ (Negative); Leukocyte Esterase,Urine Negative (Negative); Mucus,Urine Occasional /hpf; Nitrite,Urine Negative (Negative); Protein,Urine 1+ (Negative); RBC,Urine <1 /hpf (0-5)
[2023-01-09 18:28] LABS: Specific Gravity,Urine >1.050 (1.001-1.035)
[2023-01-09] MEDS ORDERED: PEG 3350 (236 GM/BTL) + LYTES 4,000 ML BOTTLE PO ONE (19:21)
[2023-01-09 21:35] VITALS: BP 122/67; PULSE 68; TEMP 98.6
== END 2023-01-09 21:31 | disposition home or self-care (01) ==
LOC: EC 14:20
DX: R10.33 Periumbilical pain (principal); F17.290 Nicotine dependence, other tobacco product, uncomplicated; Z86.59 Personal history of other mental and behavioral disorders; F12.90 Cannabis use, unspecified, uncomplicated; Z88.5 Allergy status to narcotic agent
CPT/HCPCS: 36415; 80053; 82150; 83605; 83690; 85025; 86140; 81001; 74177; 99284; 96374; 96375; 96376; J2270; J2405; Q9967

== ENCOUNTER 2023-11-17 13:40 | Emergency (ER) | payer OTHER ==
[2023-11-17] MEDS ORDERED: ACETAMINOPHEN TAB 500 MG TAB ONE (14:18)
--- NOTE | 2023-12-16 11:04 | CT ---
EXAMINATION TYPE: CT brain cspine wo con DATE OF EXAM: 11/17/2023 COMPARISON: No comparison images with PACS downtime HISTORY: Head and neck pain x2 days CT DLP: 1464 mGycm, Automated exposure control for dose reduction was used. CONTRAST: Patient injected with 0 mL of Isovue 300. CT of the brain is performed utilizing 3 mm thick sections through the posterior fossa and 3 mm thick sections through the remaining calvarium. Study is performed within 24 hours of arrival to the hospital. No abnormal hyperdensity is present to suggest an acute intracranial hemorrhage. No mass lesion is evident. No acute infarcts are evident. Ventricles and sulci are appropriate for the patient age. There is soft tissue swelling over the right parietal temporal calvarium. The underlying osseous stru cture is intact. Correlate for trauma. Consider soft tissue infection. Paranasal sinuses and mastoid air cells within the [id number] are clear. There is right septal dev iation. IMPRESSIONS: 1. No acute intracranial process. Follow-up MRI can be performed as clinically indicated. 2. There may be some mild superficial soft tissue swelling over the right parietal temporal soft tiss ue scalp. Correlate for soft tissue infection and prior trauma with swelling. CT cervical spine. COMPARISON: None CT of the cervical spine is performed in the axial plane at 2 mm thick sections. Reconstructed image s in the coronal, and sagittal plane are reviewed on the computer. No acute fractures are evident. Vertebral body alignment is normal. Disc heights are preserved. Vertebral body heights are preserved. No spinal canal stenosis is evident. No neural foraminal stenosis is evident. IMPRESSION: 1. No acute osseous abnormality cervical spine.
== END 2023-11-17 16:08 | disposition home or self-care (01) ==
LOC: EC 13:40
CPT/HCPCS: 70450; 72125; 99283